=== PATIENT | female | born 1990 | race Two or more races ===

== ENCOUNTER 2022-08-23 19:06 | Emergency (ER) | payer SELFPAY ==
[2022-08-23 19:14] VITALS: BP 134/84; PULSE 60; RESP 18; TEMP 97.5; BMI 28.1
[2022-08-23] MEDS ORDERED: IBUPROFEN 600 MG TABLET (FP) PO ONE ×2 (20:05→20:07)
[2022-08-23] MEDS ORDERED: ACETAMINOPHEN 500 MG TABLET (FP) PO ONE (20:05)
[2022-08-23] MEDS ORDERED: ACETAMINOPHEN 500 MG TABLET (FP) ONE (20:07)
== END 2022-08-23 20:53 | disposition home or self-care (01) ==
LOC: JERFT 19:06
DX: M67.431 Ganglion, right wrist (principal)
CPT/HCPCS: 73110-TC-RT-FY; 73130-TC-RT-FY; 99284-25

== ENCOUNTER 2024-02-14 20:24 | Emergency (ER) | payer OTHER ==
[2024-02-14 20:35] VITALS: BMI 28.1
[2024-02-14 22:40] LABS: BASO % 0.7 % (0-2.0); EOS % 0.2 % (0-4.5); HEMATOCRIT 42.3 % (32.4-45.2); HEMOGLOBIN 13.8 GM/dL (10.7-15.3); LYMPH % 31.6 % (8-40); MCH 26.8 pg (25.7-33.7); MCHC 32.6 g/dl (32.0-36.0); MEAN CELL VOLUME 82.3 fl (80-96); MEAN PLT VOLUME 8.6 fl (7.5-11.1); MONO % 6.6 % (3.8-10.2); NEUT % 60.9 % (42.8-82.8); PLATELET COUNT 238 10^3/uL (134-434); RBC 5.14 M/mm3 (3.60-5.2); RDW 12.9 % (11.6-15.6); WHITE BLOOD COUNT 8.9 K/mm3 (4.0-10.0)
[2024-02-14] MEDS ORDERED: ACETAMINOPHEN INJECTION 100 ML IVPB ONE (22:41)
[2024-02-14] MEDS ORDERED: METOCLOPRAMIDE HCL INJECTION 10 MG/2 ML VIAL ONE (22:41)
[2024-02-14] MEDS: LACTATED RINGERS SOLUTION 1000 ML INFUS.BAG IV ONE (22:48)
[2024-02-14] MEDS: ACETAMINOPHEN 1000 MG/100 ML BAG IVPB ONE (22:49)
[2024-02-14] MEDS: METOCLOPRAMIDE HCL INJECTION 10 MG/2 ML VIAL IVPB ONE (22:49)
[2024-02-14 22:51] LABS: URINE APPEARANCE CLEAR; URINE BILIRUBIN NEGATIVE (NEGATIVE); URINE COLOR YELLOW; URINE GLUCOSE (UA) NEGATIVE (NEGATIVE); URINE KETONE NEGATIVE (NEGATIVE); URINE LEUK ESTERASE NEGATIVE (NEGATIVE); URINE NITRITE NEGATIVE (NEGATIVE); URINE PROTEIN NEGATIVE (NEGATIVE)
[2024-02-14 22:54] LABS: INR 0.99 (0.83-1.09); PROTHROMBIN TIME (PATIENT) 11.5 SEC (9.7-13.0)
[2024-02-14 22:56] LABS: ACTIVATED PTT 29.7 SECONDS (25.2-36.5)
[2024-02-14 23:22] LABS: POTASSIUM 4.3 mmol/L (3.5-5.1)
[2024-02-14 23:25] LABS: CALCIUM 8.8 mg/dL (8.5-10.1)
[2024-02-14 23:26] LABS: ALBUMIN 3.8 g/dl (3.4-5.0); BLOOD UREA NITROGEN 9.2 mg/dL (7-18); MAGNESIUM 2.2 mg/dL (1.8-2.4)
[2024-02-14 23:29] LABS: CREATININE 0.7 mg/dL (0.55-1.3)
[2024-02-14 23:30] LABS: BILIRUBIN,TOTAL 0.3 mg/dL (0.2-1)
[2024-02-14 23:31] LABS: TOT PROT 7.3 g/dl (6.4-8.2)
[2024-02-15 01:28] VITALS: PULSE 59; RESP 18; TEMP 98
[2024-02-15 01:29] VITALS: BP 118/75
== END 2024-02-15 01:48 | disposition home or self-care (01) ==
LOC: JERFT 20:24 → JER 20:24
PROC: 3E030NZ Introduction of Analgesics, Hypnotics, Sedatives into Peripheral Vein, Open Approach (ICD-10-PCS; principal; 2024-02-14)
PROC: 3E030GC Introduction of Other Therapeutic Substance into Peripheral Vein, Open Approach (ICD-10-PCS; 2024-02-14)
DX: R29.810 Facial weakness (principal); M54.6 Pain in thoracic spine; R51.9 Headache, unspecified; R10.30 Lower abdominal pain, unspecified; M25.511 Pain in right shoulder; M25.512 Pain in left shoulder
CPT/HCPCS: 36415; 70450-TC; 71045-TC-FY; 80053; 81003; 83735; 84439; 84443; 84484; 84703; 85025; 85610; 85730; 86850; 86900; 86901; 87086; 93005; 93010; 99285-25; J0131